=== PATIENT | female | born 1995 | race Caucasian/White ===

== ENCOUNTER 2016-10-03 17:39 | Emergency (ER) | payer BC ==
[~2016-10-03] VITALS: Ht 172.7 cm; Wt 76.0 kg
[2016-10-03 17:49] VITALS: Ht 172.7 cm; Wt 76.0 kg
--- NOTE | 2016-10-03 19:10 | EMERGENCY ROOM VISIT NOTE ---
History Report prepared by Jitendra: Gus Santana Under the Supervision of: Dr. Jose Lynch M.D. First contact with patient: 17:57 Chief Complaint: OTHER COMPLAINT Stated Complaint: TREMORS,BLURRED VISION,MEMORY IMPAIRMENT History of Present Illness The patient is a 21 year old female who presents to the Emergency Room with complaints of constant whole body shaking beginning two weeks ago. She also notes intermittent tremors. Her symptoms are worsened with laying down. The patient states she has a rash on her lower right leg. She has also been experiencing blurred vision. She is on Latuda and recently had her dosage increased from 20 mg to 30 mg last month in anticipation of finals week increasing her depression. Her LNMP was 4 days ago and she denies any chance of . Source of History: patient Onset: 2 weeks ago Position: other (whole body) Quality: other (shaking) Timing: constant Modifying Factors (Worsening): other (laying down) Note: intermittent tremors and blurred vision Review of Systems See HPI for pertinent positives & negatives. A total of 10 systems reviewed and were otherwise negative. Past Medical & Surgical Medical Problems: (1) Bipolar disorder (2) Depression (3) H/O Meseret thyroiditis Family History No pertinent family history stated. Social History Smoking Status: Never Smoker Housing Status: lives with roommate Occupation Status: employed Current/Historical Medications Scheduled Control Pills ( Control Pills), 1 TAB PO DAILY Lamotrigine (Lamictal), 450 MG PO HS Lurasidone Hcl (Latuda), 30 MG PO HS Allergies Coded Allergies: No Known Allergies (Unverified , 10/03/16) Physical Exam Vital Signs Date Time Temp Pulse Resp B/P Pulse Ox O2 Delivery O2 Flow Rate FiO2 10/03/16 19:28 36.7 78 20 128/71 97 10/03/16 19:27 78 20 128/71 97 Room Air 10/03/16 17:49 36.7 81 20 133/76 97 Room Air Physical Exam GENERAL: Patient is a healthy-appearing well-nourished HEAD: Normocephalic atraumatic EYES: Ocular movements intact pupils equal and react to light OROPHARYNX mucous membranes are moist no exudates present no erythema or edema present NECK: Supple no nuchal rigidity CHEST: Good equal expansion LUNGS: Clear and equal to auscultation CARDIAC: Normal S1 and S2 ABDOMEN: Soft nontender no guarding BACK: No CVA tenderness EXTREMITIES: No pain upon palpation normal muscle strength in all groups no clubbing cyanosis or edema NEURO: Patient is following commands is answering questions appropriately. Alert and oriented x3 Cranial Nerves 2-12 grossly intact PSYCH: non suicidal or homicidal; feels safe to go home Medical Decision & Procedures Laboratory Results Labs reviewed by ED physician. ED Course 1821: Past medical records reviewed. The patient was evaluated in room A8. A complete history and physical examination was performed. 1899: Upon reexamination the patient is resting comfortably.. I discussed results and treatment plan with the patient. She verbalizes agreement and understanding. The patient is ready for discharge. Medical Decision Differential diagnosis: Etiologies such as mood disorder, infection, hypoglycemia, electrolyte abnormalities, cardiac sources, intracerebral event, toxicologic, neurologic, as well as others were entertained. This is a 21-year-old female who recently had her Latuda dosing bumped up. Since that time she has been having tremors in her hands. The patient denies being suicidal or homicidal or even depressed. I believe based on her presentation and in consultation with pharmacy as well as case management that the patient can be safely discharged home on her earlier dose of Latuda. In addition case management is going to get the patient in with outpatient therapy. Patient was in agreement with the treatment plan. Impression Primary Impression: Occasional tremors Scribe Attestation The scribe's documentation has been prepared under my direction and personally reviewed by me in its entirety. I confirm that the note above accurately reflects all work, treatment, procedures, and medical decision making performed by me. Departure Information Dispostion Home / Self-Care Referrals No Doctor, Assigned (PCP) Forms HOME CARE DOCUMENTATION FORM, IMPORTANT VISIT INFORMATION, WORK / SCHOOL INSTRUCTIONS Patient Instructions My [facility] [employer] Additional Instructions Drop Latuda back to 20 mg Follow up with [facility] on Thursday You were found to have an elevated blood pressure today (>120 sytolic or >90 diastolic). Per medicare guidelines, you need to follow up with this blood pressure screening with your Primary Care Physician (PCP). For a new PCP call [phone]. You have been examined and treated today on an emergency basis only. This is not a substitute for, or an effort to provide, complete comprehensive medical care. It is impossible to recognize and treat all injuries or illnesses in a single emergency department visit. It is therefore important that you follow up closely with your PCP. Call as soon as possible for an appointment. Thank you for your time and consideration. I look forward to speaking with you again soon. Please don't hesitate to call us if you have any questions.
[2016-10-03] MEDS ORDERED: LAMO150T32 PO (19:13)
[2016-10-03] MEDS ORDERED: BCPILLS PO (19:13)
[2016-10-03] MEDS ORDERED: LURA1TAB3 PO (19:13)
[2016-10-03 19:28] VITALS: BP 128/71; PULSE 78; TEMP 36.7; O2SAT 97
== END 2016-10-03 19:28 | disposition home or self-care (01) ==
LOC: C.EDB 17:42 → C.EDA 19:28
DX: R25.1 Tremor, unspecified (principal); F33.41 Major depressive disorder, recurrent, in partial remission

== ENCOUNTER 2016-10-12 01:35 | Emergency (ER) | payer BC ==
[~2016-10-12] VITALS: Ht 170.2 cm; Wt 73.8 kg
[~2016-10-12 01:35] MED LIST: BCPILLS PO; LAMO150T32 PO; LURA1TAB3 PO
[2016-10-12 01:46] VITALS: Ht 170.2 cm; Wt 73.8 kg
[2016-10-12] MEDS ORDERED: LEVO125T5 PO (02:36)
[2016-10-12] MEDS ORDERED: LURA1TAB PO (02:36)
[2016-10-12 02:39] LABS: HEMATOCRIT 42.5 % (37-47); MEAN CORPUSCULAR HEMOGLOBIN 28.6 pg (25-34); MEAN CORPUSCULAR HGB CONC 32.5 g/dl (32-36); PLATELET COUNT 323 K/uL (130-400); RED BLOOD COUNT 4.83 M/uL (4.2-5.4); WHITE BLOOD COUNT 7.32 K/uL (4.8-10.8)
[2016-10-12 02:49] LABS: BUN/CREATININE RATIO 10.9 (10-20); CALCIUM 9.2 mg/dl (8.5-10.1); POTASSIUM 3.6 mmol/L (3.5-5.1)
[2016-10-12 02:58] LABS: BENZODIAZEPINE, URINE NEG (NEG); COCAINE,URINE NEG (NEG); PHENCYCLIDINE, URINE NEG (NEG)
[2016-10-12 02:58] LABS: ACETAMINOPHEN < 2 ug/ml (10-30); THYROID STIMULATING HORMONE 6.16 uIu/ml (0.300-4.500)
--- NOTE | 2016-10-12 03:17 | EMERGENCY ROOM VISIT NOTE ---
History Report prepared by Jitendra: Adrián Oshea Under the Supervision of: Dr. Celine Yeung D.O. First contact with patient: 01:37 Chief Complaint: MENTAL HEALTH EVALUATION Stated Complaint: INABILITY TO SLEEP OR EAT History of Present Illness The patient is a 21 year old female who presents to the Emergency Room with complaints of visual hallucinations occurring tonight. She was watching "How I met your mother" when she saw angry faces on the screen. There was no actual tense moment on the screen at the time of the hallucination. She has not slept for more than 4 hours in the past few days. She denies any suicidal or homicidal ideation. The patient's mom is concerned for the patient to be currently having a manic episode. The patient has a history of similar symptoms occurring in January and she was hospitalized for having a manic episode. She was diagnosed with bipolar disorder. She has been taking her medications as prescribed. She is prescribed Latuda, Lamotrigine, and an acne cream. She moved to [place] [facility] on October 01. She has no support system here in the area. The patient currently denies any pain. She denies fevers, chills, headache, or any other complaints. Her last normal menstrual period started today. Source of History: patient Onset: tonight Position: other (global) Symptom Intensity: no pain Quality: other (visual hallucinations) Associated Symptoms: No fevers, No chills, No headache Review of Systems See HPI for pertinent positives & negatives. A total of 10 systems reviewed and were otherwise negative. Past Medical & Surgical Medical Problems: (1) Bipolar disorder (2) Depression (3) H/O Meseret thyroiditis Family History Diabetes mellitus FH: cancer FH: depression FH: hypertension FH: stroke Heart disease Social History Smoking Status: Never Smoker Marital Status: single Housing Status: lives with roommate Occupation Status: student Current/Historical Medications Scheduled Control Pills ( Control Pills), 1 TAB PO DAILY Lamotrigine (Lamictal), 450 MG PO HS Levothyroxine Sodium (Levothyroxine Sodium), 1 TAB PO DAILY Lurasidone Hcl (Latuda), 20 MG PO UD Allergies Coded Allergies: No Known Allergies (Unverified , 10/12/16) Physical Exam Vital Signs Date Time Temp Pulse Resp B/P (MAP) Pulse Ox O2 Delivery O2 Flow Rate FiO2 10/12/16 01:46 36.9 114 18 138/97 99 Room Air Physical Exam General: Patient is hyperverbal, having some difficulty with focusing. HEENT: Head - normocephalic and atraumatic Pupils are equal, round, and reactive to light. Extraocular eye muscles are intact, and sclera are anicteric. Nose - moist nasal mucosa without discharge. Mouth - moist buccal mucosa. Oropharynx is nonerythematous and there is no tonsillar exudate or edema noted. Neck: Supple; no JVD, nuchal rigidity, cervical lymphadenopathy. Heart: Regular rate and rhythm. There is a normal S1 and S2 with no murmurs, clicks, or gallops appreciated. Lungs: Clear to auscultation bilaterally with no wheezes, rales, or rhonchi. Abdomen: Soft, completely nontender, nondistended, with good bowel sounds. There are no palpable pulsatile masses or hepatosplenomegaly. There is no guarding, rigidity, or rebound noted. Extremities: No evidence of cyanosis, clubbing, or edema. There are easily palpable peripheral pulses. Skin: warm and dry with good turgor and no rashes. Psychiatric: Manic, paranoid at times, denies suicidal or homicidal ideation. Medical Decision & Procedures Laboratory Results 10/12/16 01:51 10/12/16 01:51 Test 10/12/16 00:00 10/12/16 01:51 10/12/16 05:04 Urine Opiates Screen NEG (NEG) Urine Methadone, Qualitative NEG (NEG) Urine Barbiturates NEG (NEG) Urine Phencyclidine (PCP) Level NEG (NEG) Ur Amphetamine/Methamphetamine NEG (NEG) MDMA (Ecstasy) Screen NEG (NEG) Urine Benzodiazepines Screen NEG (NEG) Urine Cocaine Metabolite NEG (NEG) Urine Marijuana (THC) NEG (NEG) Red Blood Count 4.83 M/uL (4.2-5.4) Mean Corpuscular Volume 88.0 fL (80-100) Mean Corpuscular Hemoglobin 28.6 pg (25-34) Mean Corpuscular Hemoglobin Concent 32.5 g/dl (32-36) RDW Standard Deviation 41.7 fL (36.4-46.3) RDW Coefficient of Variation 13.0 % (11.5-14.5) Mean Platelet Volume 10.0 fL (7.4-10.4) Anion Gap 8.0 mmol/L (3-11) Est Creatinine Clear Calc Drug Dose 86.6 ml/min Estimated GFR () 93.3 Estimated GFR (Non- 80.5 BUN/Creatinine Ratio 10.9 (10-20) Calcium Level 9.2 mg/dl (8.5-10.1) Total Bilirubin 0.3 mg/dl (0.2-1) Direct Bilirubin 0.1 mg/dl (0-0.2) Aspartate Amino Transf (AST/SGOT) 18 U/L (15-37) Alanine Aminotransferase (ALT/SGPT) 17 U/L (12-78) Alkaline Phosphatase 65 U/L (45-117) Total Protein 8.1 gm/dl (6.4-8.2) Albumin 4.4 gm/dl (3.4-5.0) Thyroid Stimulating Hormone (TSH) 6.160 uIu/ml (0.300-4.500) Salicylates Level < 1.7 mg/dl (2.8-20) Acetaminophen Level < 2 ug/ml (10-30) Ethyl Alcohol mg/dL < 3.0 mg/dl (0-3) Laboratory results per my review. ED Course 0137: Past medical records reviewed. The patient was evaluated in room A08. A complete history and physical exam was performed. I attest that I have personally reviewed the patient's current medication list. Patient was found to have an elevated blood pressure and was referred to their primary doctor for recheck and further treatment. 0339: I discussed the patient's case with her mother. 0501: The patient is being evaluated by the mobile crisis team. 0558: The patient is voluntary. A bed search is in progress. 0612: I reevaluated the patient who is relaxed and seems pleasant. 0630: The patient was signed out to Dr. Staley at [id number]. Medical Decision The patient presents to the Emergency Room for a mental health evaluation. Differential diagnosis includes but is not limited to thought disorder, mood disorder, acute manic episode. Her labs showed normal white count, stable H&H, TSH 6.1, normal renal function, normal glucose and LFTs, negative alcohol, Tylenol or aspirin, negative tox screen. It is uncertain whether or not the patient has been taking her medications. She seems to be manic. At times, the patient is delusional and paranoid. The mother explains that the patient told her that she took an excessive dose of Benadryl earlier this evening and had to call poison control. I am concerned that she is not able to make good decisions. She is willing to admit herself voluntarily to an inpatient psychiatric facility. Currently mobile crisis is performing a bed search. The case was signed out to Dr. Staley. Impression Primary Impression: Antonieta Additional Impressions: Paranoia Hypothyroidism Scribe Attestation The scribe's documentation has been prepared under my direction and personally reviewed by me in its entirety. I confirm that the note above accurately reflects all work, treatment, procedures, and medical decision making performed by me. Departure Information Dispostion Still a Patient Referrals No Doctor, Assigned (PCP) Patient Instructions My [facility] Problem Qualifiers
[2016-10-12 07:05] VITALS: TEMP 36.6
[2016-10-12 07:59] LABS: URINE APPEARANCE CLEAR (CLEAR); URINE BILIRUBIN NEG (NEG); URINE COLOR YELLOW; URINE EPITHELIAL CELL AUTO >30 /lpf (0-5); URINE NITRITE NEG (NEG); URINE PH 5.5 (4.5-7.5); UROBILINOGEN NEG (NEG)
[2016-10-12 08:02] LABS: MANUAL MICROSCOPIC REQUIRED? NO; REVIEW REQ? NO
--- NOTE | 2016-10-12 08:56 | EMERGENCY ROOM VISIT NOTE ---
ED Visit Note Patient was signed out to me awaiting placement on a 201. Patient was eventually accepted to the [facility]. She was resting comfortably. She will be transported with a 201 for inpatient psychiatric treatment.
[2016-10-12] MEDS ORDERED: LEVOTHYROXINE 125 MCG TAB PO ONE (09:20)
[2016-10-12 10:47] VITALS: BP 150/90; PULSE 96; O2SAT 98
[2016-10-13] MEDS ORDERED: LEVOTHYROXINE 125 MCG TAB PO SCH (07:00)
== END 2016-10-12 10:49 ==
LOC: EDBD 01:35 → C.EDA 01:36
DX: F30.2 Manic episode, severe with psychotic symptoms (principal); E03.9 Hypothyroidism, unspecified; Z79.3 Long term (current) use of hormonal contraceptives; Z79.899 Other long term (current) drug therapy; Z81.8 Family history of other mental and behavioral disorders; Z82.3 Family history of stroke; Z82.49 Family history of ischemic heart disease and other diseases of the circulatory system; Z83.3 Family history of diabetes mellitus

== ENCOUNTER 2016-10-16 20:09 | Emergency (ER) | payer BC ==
[~2016-10-16] VITALS: Ht 170.2 cm; Wt 73.0 kg
[~2016-10-16 20:09] MED LIST changes: +LEVO125T5 PO; +LURA1TAB PO; -LURA1TAB3 PO
[2016-10-16 20:11] VITALS: TEMP 36.5; Ht 170.2 cm; Wt 73.0 kg
[2016-10-16 21:06] LABS: URINE APPEARANCE CLEAR (CLEAR); URINE BILIRUBIN NEG (NEG); URINE COLOR YELLOW; URINE NITRITE NEG (NEG); URINE PH 6.5 (4.5-7.5); URINE SPECIFIC GRAVITY 1.009 (1.000-1.030); UROBILINOGEN NEG (NEG)
[2016-10-16] MEDS ORDERED: ATV/1 PO ×2 (21:10→22:39)
[2016-10-16] MEDS ORDERED: DIPH25CA65 PO ×2 (21:10→22:39)
[2016-10-16] MEDS ORDERED: LTHSR/300 PO (21:10)
[2016-10-16] MEDS ORDERED: LURA1TAB3 PO (21:10)
[2016-10-16 21:11] LABS: BASO % 1.2 %; BASO ABS # 0.07 K/uL (0-0.2); COMPLETE YES; EOS % 1.8 %; HEMATOCRIT 38.9 % (37-47); IG% 0.2 %; LYMPH % 26.6 %; LYMPH ABS # 1.61 K/uL (1.2-3.4); MEAN CELL VOLUME 89.4 fL (80-100); MEAN CORPUSCULAR HEMOGLOBIN 29.2 pg (25-34); MEAN CORPUSCULAR HGB CONC 32.6 g/dl (32-36); MEAN PLATELET VOLUME 10.2 fL (7.4-10.4); MONO % 11.6 %; NEUT % 58.6 %; PLATELET COUNT 273 K/uL (130-400); RED BLOOD COUNT 4.35 M/uL (4.2-5.4); WHITE BLOOD COUNT 6.05 K/uL (4.8-10.8)
[2016-10-16 21:20] LABS: MANUAL MICROSCOPIC REQUIRED? NO; REVIEW REQ? NO
[2016-10-16 21:28] LABS: BENZODIAZEPINE, URINE NEG (NEG); COCAINE,URINE NEG (NEG); PHENCYCLIDINE, URINE NEG (NEG)
[2016-10-16 21:40] LABS: BUN/CREATININE RATIO 8.1 (10-20); CREATININE 0.95 mg/dl (0.60-1.20); POTASSIUM 4.1 mmol/L (3.5-5.1)
[2016-10-16 21:51] LABS: THYROID STIMULATING HORMONE 4.94 uIu/ml (0.300-4.500)
[2016-10-16 22:01] LABS: CALCIUM 9.2 mg/dl (8.5-10.1)
[2016-10-16] MEDS ORDERED: LORAZEPAM 1 MG TAB PO STA (22:31)
[2016-10-16] MEDS ORDERED: LITHIUM CARBONATE 300 MG TAB PO STA (22:31)
[2016-10-16] MEDS ORDERED: LAMO200T PO (22:39)
[2016-10-16] MEDS ORDERED: LEVO125T5 PO (22:39)
[2016-10-16] MEDS ORDERED: LITH150C PO (22:39)
[2016-10-16] MEDS ORDERED: LURA40TA PO (22:39)
[2016-10-16 22:57] VITALS: BP 121/81; PULSE 81; O2SAT 99
--- NOTE | 2016-10-16 23:54 | EMERGENCY ROOM VISIT NOTE ---
History Report prepared by Jitendra: Ellie Hernandez Under the Supervision of: Dr. Jose Lynch M.D. First contact with patient: 20:25 Chief Complaint: MENTAL HEALTH EVALUATION Stated Complaint: BIPOLAR History of Present Illness The patient is a 21 year old female who presents to the Emergency Room with complaints of persistent mental health problems starting last week. The patient' s mother reports that she was diagnosed with bipolar with hallucinations, marie , and delusions 9 months ago. She is from [place] and in [place] for a 10 week research program at [employer]. She has been seen in the ED 2 times since her arrival here last week. At her last visit, she was voluntarily admitted to the [facility] for inpatient care. Since then, her mother has developed concerns about the quality of care she is receiving at the [facility]. She pulled her out 1 hour ago and brought her to the ED. She reports that the patient's delusions and hallucinations have not improved after 1 week at the [facility]. She denies any SI or HI. She notes she probably has not been eating as much as she should. Her mother states that she was hot to touch. She denies any chance of . Her last menstrual period was 4 days ago. Source of History: patient, parent Onset: last week Position: other (mental health) Quality: other (mental health problems) Timing: other (persistent) Associated Symptoms: + fevers Note: Pt has delusions and hallucinations. Pt denies SI/HI. Review of Systems See HPI for pertinent positives & negatives. A total of 10 systems reviewed and were otherwise negative. Past Medical & Surgical Medical Problems: (1) Bipolar disorder (2) Depression (3) H/O Meseret thyroiditis Family History Diabetes mellitus FH: cancer FH: depression FH: hypertension FH: stroke Heart disease Social History Smoking Status: Never Smoker Marital Status: single Housing Status: lives with roommate Occupation Status: student Current/Historical Medications Scheduled Diphenhydramine Hcl (Benadryl Allergy), 25 MG PO QPM Diphenhydramine Hcl (Benadryl Allergy), 1 CAP PO 1700 Lamotrigine (Lamictal), 400 MG PO HS Lamotrigine (Lamictal), 400 MG PO HS Levothyroxine Sodium (Levothyroxine Sodium), 1 TAB PO DAILY Levothyroxine Sodium (Levothyroxine Sodium), 1 TAB PO DAILY [place] Carbonate ([place] Carbonate), 300 MG PO BID [place] Carbonate ([place] Carbonate), 300 MG PO BID Lorazepam (Ativan), 1 MG PO BID Lurasidone Hcl (Latuda), 60 MG PO QPM Lurasidone Hcl (Latuda), 60 MG PO 1700 Scheduled PRN Lorazepam (Ativan), 1 MG PO BID PRN for bid Allergies Coded Allergies: No Known Allergies (Unverified , 10/16/16) Physical Exam Vital Signs Date Time Temp Pulse Resp B/P (MAP) Pulse Ox O2 Delivery O2 Flow Rate FiO2 10/16/16 22:57 81 16 121/81 99 10/16/16 20:11 36.5 85 18 117/74 98 Room Air Physical Exam GENERAL: Patient is a healthy-appearing well-nourished HEAD: Normocephalic atraumatic EYES: Ocular movements intact pupils equal and react to light OROPHARYNX mucous membranes are moist no exudates present no erythema or edema present NECK: Supple no nuchal rigidity CHEST: Good equal expansion LUNGS: Clear and equal to auscultation CARDIAC: Normal S1 and S2 ABDOMEN: Soft nontender no guarding BACK: No CVA tenderness EXTREMITIES: No pain upon palpation normal muscle strength in all groups no clubbing cyanosis or edema NEURO: Patient is following commands is answering questions appropriately. Alert and oriented x3 Cranial Nerves 2-12 grossly intact Medical Decision & Procedures Laboratory Results 10/16/16 21:00 Red Blood Count 4.35, Mean Corpuscular Volume 89.4, Mean Corpuscular Hemoglobin 29.2, Mean Corpuscular Hemoglobin Concent 32.6, Mean Platelet Volume 10.2, Neutrophils (%) (Auto) 58.6, Lymphocytes (%) (Auto) 26.6, Monocytes (%) (Auto) 11.6, Eosinophils (%) (Auto) 1.8, Basophils (%) (Auto) 1.2, Neutrophils # (Auto ) 3.55, Lymphocytes # (Auto) 1.61, Monocytes # (Auto) 0.70, Eosinophils # (Auto ) 0.11, Basophils # (Auto) 0.07 10/16/16 21:00 Test 10/16/16 20:27 10/16/16 21:00 Urine Color YELLOW Urine Appearance CLEAR (CLEAR) Urine pH 6.5 (4.5-7.5) Urine Specific [place] 1.009 (1.000-1.030) Urine Protein NEG (NEG) Urine Glucose (UA) NEG (NEG) Urine Ketones NEG (NEG) Urine Occult Blood 1+ (NEG) Urine Nitrite NEG (NEG) Urine Bilirubin NEG (NEG) Urine Urobilinogen NEG (NEG) Urine Leukocyte Esterase NEG (NEG) Urine WBC (Auto) 1-5 /hpf (0-5) Urine RBC (Auto) 0-4 /hpf (0-4) Urine Hyaline Casts (Auto) 0 /lpf (0-5) Urine Epithelial Cells (Auto) 10-20 /lpf (0-5) Urine Bacteria (Auto) NEG (NEG) Urine Test NEG (NEG) Urine Opiates Screen NEG (NEG) Urine Methadone, Qualitative NEG (NEG) Urine Barbiturates NEG (NEG) Urine Phencyclidine (PCP) Level NEG (NEG) Ur Amphetamine/Methamphetamine NEG (NEG) MDMA (Ecstasy) Screen NEG (NEG) Urine Benzodiazepines Screen NEG (NEG) Urine Cocaine Metabolite NEG (NEG) Urine Marijuana (THC) NEG (NEG) White Blood Count 6.05 K/uL (4.8-10.8) Red Blood Count 4.35 M/uL (4.2-5.4) Hemoglobin 12.7 g/dL (12.0-16.0) Hematocrit 38.9 % (37-47) Mean Corpuscular Volume 89.4 fL (80-100) Mean Corpuscular Hemoglobin 29.2 pg (25-34) Mean Corpuscular Hemoglobin Concent 32.6 g/dl (32-36) Platelet Count 273 K/uL (130-400) Mean Platelet Volume 10.2 fL (7.4-10.4) Neutrophils (%) (Auto) 58.6 % Lymphocytes (%) (Auto) 26.6 % Monocytes (%) (Auto) 11.6 % Eosinophils (%) (Auto) 1.8 % Basophils (%) (Auto) 1.2 % Neutrophils # (Auto) 3.55 K/uL (1.4-6.5) Lymphocytes # (Auto) 1.61 K/uL (1.2-3.4) Monocytes # (Auto) 0.70 K/uL (0.11-0.59) Eosinophils # (Auto) 0.11 K/uL (0-0.5) Basophils # (Auto) 0.07 K/uL (0-0.2) RDW Standard Deviation 42.8 fL (36.4-46.3) RDW Coefficient of Variation 13.0 % (11.5-14.5) Immature Granulocyte % (Auto) 0.2 % Immature Granulocyte # (Auto) 0.01 K/uL (0.00-0.02) Anion Gap 7.0 mmol/L (3-11) Est Creatinine Clear Calc Drug Dose 91.1 ml/min Estimated GFR () 99.2 Estimated GFR (Non- 85.6 BUN/Creatinine Ratio 8.1 (10-20) Calcium Level 9.2 mg/dl (8.5-10.1) Total Bilirubin 0.3 mg/dl (0.2-1) Direct Bilirubin 0.1 mg/dl (0-0.2) Aspartate Amino Transf (AST/SGOT) 12 U/L (15-37) Alanine Aminotransferase (ALT/SGPT) 15 U/L (12-78) Alkaline Phosphatase 54 U/L (45-117) Total Protein 7.8 gm/dl (6.4-8.2) Albumin 4.1 gm/dl (3.4-5.0) Thyroid Stimulating Hormone (TSH) 4.940 uIu/ml (0.300-4.500) [place] Level 0.4 mMOL/L (0.6-1.2) Ethyl Alcohol mg/dL < 3.0 mg/dl (0-3) Labs reviewed by ED physician. Medications Administered Medications (Trade) Dose Ordered Sig/Aravind Route Start Time Stop Time Status Last Admin Dose Admin Lamotrigine (Lamictal Tab) 400 mg NOW STAT PO 10/16/16 22:31 10/16/16 22:33 DC 10/16/16 22:50 400 MG [place] Carbonate (B[place] Carbonate Tab) 300 mg NOW STAT PO 10/16/16 22:31 10/16/16 22:33 DC 10/16/16 22:51 300 MG Lorazepam (Ativan Tab) 1 mg NOW STAT PO 10/16/16 22:31 10/16/16 22:33 DC 10/16/16 22:50 1 MG ED Course 2034: Past medical records reviewed. The patient was evaluated in room A5. A complete history and physical examination was performed. 2230: Lorazepam 1 mg PO, [place] Carbonate 300 mg PO, Lamotrigine 400 mg PO. 2239: Upon reexamination the patient is resting comfortably. I discussed results and treatment plan with the patient and her mother. She verbalizes agreement and understanding. The patient is ready for discharge. Medical Decision Differential diagnosis: Etiologies such as mood disorder, infection, hypoglycemia, electrolyte abnormalities, cardiac sources, intracerebral event, toxicologic, neurologic, as well as others were entertained. Medication Reconciliation: I attest that I have personally reviewed the patient' s current medication list Blood Pressure Screening: Patient was found to have normal blood pressure on screening and does not require follow up. This is a 21-year-old female who presents emergency department complaining of mood disorder. The patient's mother signed her out of the [facility] this evening over concern over care of her daughter. Upon arrival to the emergency department here the patient denies being suicidal or homicidal. Mother is requesting to have medications refilled here. She is planning on taking her daughter back home to [facility]. I feel that this is reasonable. She was also evaluated independently by case management who also felt that the patient can be safely discharged home. The patient was given her evening medications. Mother feels that she can safely take the patient home. Impression Primary Impression: Mood disorder Scribe Attestation The scribe's documentation has been prepared under my direction and personally reviewed by me in its entirety. I confirm that the note above accurately reflects all work, treatment, procedures, and medical decision making performed by me. Departure Information Dispostion Home / Self-Care Prescriptions Lorazepam (ATIVAN) 1 Mg Tab 1 MG PO BID Y for bid for 7 Days, #14 TAB Prov: Jose Lynch MD 10/16/16 Lurasidone Hcl (LATUDA) 40 Mg Tab 60 MG PO 1700 for 7 Days, #7 TAB Prov: Jose Lynch MD 10/16/16 [place] Carbonate (LITHIUM CARBONATE) 150 Mg Cap 300 MG PO BID for 7 Days, #28 CAP Prov: Jose Lynch MD 10/16/16 Lamotrigine (LAMICTAL) 200 Mg Tab 400 MG PO HS for 7 Days, #7 TAB Prov: Jose Lynch MD 10/16/16 Diphenhydramine Hcl (BENADRYL ALLERGY) 25 Mg Cap 1 CAP PO 1700 for 7 Days, #7 CAP Prov: Jose Lynch MD 10/16/16 Levothyroxine Sodium (LEVOTHYROXINE SODIUM) 125 Mcg Tab 1 TAB PO DAILY for 7 Days, #7 TAB Prov: Jose Lynch MD 10/16/16 Referrals No Doctor, Assigned (PCP) Forms HOME CARE DOCUMENTATION FORM, IMPORTANT VISIT INFORMATION Patient Instructions My [facility] Additional Instructions You have been examined and treated today on an emergency basis only. This is not a substitute for, or an effort to provide, complete comprehensive medical care. It is impossible to recognize and treat all injuries or illnesses in a single emergency department visit. It is therefore important that you follow up closely with your PCP. Call as soon as possible for an appointment. Thank you for your time and consideration. I look forward to speaking with you again soon. Please don't hesitate to call us if you have any questions.
== END 2016-10-16 23:01 | disposition home or self-care (01) ==
LOC: C.EDB 20:10 → C.EDA 23:01
DX: F39 Unspecified mood [affective] disorder (principal); R44.3 Hallucinations, unspecified; R50.9 Fever, unspecified; Z79.899 Other long term (current) drug therapy; Z86.39 Personal history of other endocrine, nutritional and metabolic disease; Z81.8 Family history of other mental and behavioral disorders; Z82.0 Family history of epilepsy and other diseases of the nervous system; Z82.49 Family history of ischemic heart disease and other diseases of the circulatory system; Z83.3 Family history of diabetes mellitus